=== PATIENT | female | born 1965 | race African-American/Black ===

== ENCOUNTER 2017-09-20 19:45 | Emergency (ER) | payer OTHER, MEDICARE ==
[~2017-09-20] VITALS: Ht 165.1 cm; Wt 74.8 kg
[2017-09-20 19:48] VITALS: BP 129/78
--- NOTE | 2017-09-20 21:08 | RADIOLOGY REPORT ---
EXAMINATION: XR ANKLE, LEFT CLINICAL INFORMATION: Left ankle injury and swelling x3-4 weeks COMPARISON: None TECHNIQUE: AP, lateral, and mortise views of the left ankle. FINDINGS: There is circumferential soft tissue swelling, greatest laterally. There is diffuse reticulation of the subcutaneous fat. Vascular calcifications are present. No fracture or dislocation seen. The ankle mortise is intact. The talar dome is normal IMPRESSION: No acute osseous abnormality. There is circumferential soft tissue swelling, greatest laterally, with diffuse reticulation of the subcutaneous fat.
--- NOTE | 2017-09-20 21:45 | ED GENERAL ADULT ---
History of Present Illness General Chief Complaint: Foot or Ankle Injury Stated Complaint: L ANKLE INJURY Source: patient, family Exam Limitations: no limitations Vital Signs & Intake/Output Vital Signs & Intake/Output Vital Signs Date Time Temp Pulse Resp B/P B/P Pulse O2 O2 Flow FiO2 Mean Ox Delivery Rate 09/20 2048 Room Air 09/21 1947 98.1 83 18 129/78 98 Room Air Allergies Coded Allergies: No Known Allergies (06/06/17) Triage Note: PT FROM HOME C/O LEFT ANKLE INJURY 3-4 WEEKS PRIOR. PT WAS SEEN AT WALK IN CLINIC AND GIVEN A ANKLE BRACE, PER PTS SISTER, SWELLING HAS NOT DECREASED AND SHE NOTICED PT TO WALK WITH A LIMP AND TAKE SHORTER STEPS. PT HAS A HX OF MR AND HTN. PTS VSS. PT A&0X3. ICE PACK PROVIDED. Triage Nurses Notes Reviewed? yes Onset: Abrupt Duration: week(s): Timing: constant HPI: 52-year-old female with a history of hypertension and intellectual delay presenting with left ankle pain 3-4 weeks. Patient presents with her sister who helps to provide the history. States that the patient had a mechanical trip and fall 3-4. Patient was seen at a walk-in clinic and had an unremarkable x- ray of her left ankle. Was diagnosed with an ankle sprain and placed in an ankle brace for support. She presents now for persistent pain that is not improving to her left ankle. Denies numbness or paresthesias. (Keira Roman) Past History Travel History Traveled to [place] past 21 day No Medical History Any Pertinent Medical History? see below for history Neurological: Cardiovascular: hypertension Surgical History Surgical History: non-contributory Psychosocial History What is your primary language Macedonian Tobacco Use: Never used Family History Hx Contributory? No (Keira Roman) Review of Systems Review of Systems Constitutional: Reports: no symptoms. EENTM: Reports: no symptoms. Respiratory: Reports: no symptoms. Cardiovascular: Reports: no symptoms. GI: Reports: no symptoms. Genitourinary: Reports: no symptoms. Musculoskeletal: Reports: see HPI. Skin: Reports: no symptoms. Neurological/Psychological: Reports: no symptoms. Hematologic/Endocrine: Reports: no symptoms. Immunologic/Allergic: Reports: no symptoms. All Other Systems: Reviewed and Negative (Keira Roman) Physical Exam Physical Exam General Appearance: well developed/nourished, no apparent distress, alert, awake , comfortable Head: atraumatic, normal appearance Eyes: Bilateral: normal appearance. Neck: normal inspection Respiratory: normal breath sounds, lungs clear Cardiovascular: regular rate/rhythm Gastrointestinal: soft, non-tender Back: normal inspection Extremities: on exam of the left ankle there is trace edema with tenderness to palpation over both the medial and lateral aspect of the ankle, mild decrease in range of motion, sensation intact, mild decrease in motor strength, distal pulses 2+, patient is able to bear weight and ambulate with a steady gait. Neurologic/Psych: awake, alert, oriented x 3, normal gait (no limp), normal mood /affect Skin: intact, normal color, warm/dry Core Measures ACS in differential dx? No CVA/TIA Diagnosis: No Sepsis Present: No Sepsis Focused Exam Completed? No (Keira Roman) Progress Differential Diagnoses I considered the following diagnoses in my evaluation of the patient: [Ankle contusion versus ankle sprain, low concern for fracture or dislocation] Plan of Care: Patient likely has a persistent ankle sprain. Was instructed to continue wearing her brace that was provided by the walk-in center. Given information to follow up with orthopedics for reevaluation. Counseled on supportive care and strict return precautions. Initial ED EKG: none (Keira Roman) Departure Departure Disposition: HOME OR SELF CARE Condition: Stable Clinical Impression Primary Impression: Left ankle sprain Referrals: Janet YU,Filiberto العلي NP,Rick (PCP/Family) Additional Instructions: Use ibuprofen as needed for pain. Keep ankle applied in brace, with weightbearing as tolerable. Follow up with orthopedics for reevaluation. Return to the emergency department for any new or worsening symptoms. Departure Forms: Customer Survey General Discharge Information (Keira Roman) PA/MEDICAL LAB SPECIALIST Co-Sign Statement Statement: ED Attending supervision documentation- [] I saw and evaluated the patient. I have also reviewed all the pertinent lab results and diagnostic results. I agree with the findings and the plan of care as documented in the PA's/MEDICAL LAB SPECIALIST's documentation. [x] I have reviewed the ED Record and agree with the PA's/MEDICAL LAB SPECIALIST's documentation. [] Additions or exceptions (if any) to the PAs/MEDICAL LAB SPECIALIST's note and plan are summarized below: [] (Carlos Pastor DO) Critical Care Note Critical Care Note Critical Care Time: non-applicable (Kirsty BANEGAS,Keira)
== END 2017-09-20 21:56 ==
LOC: ERH 19:45
DX: S93.402A Sprain of unspecified ligament of left ankle, initial encounter (principal); W18.09XA Striking against other object with subsequent fall, initial encounter; Y92.9 Unspecified place or not applicable; Y93.9 Activity, unspecified
CPT/HCPCS: 73610-LT